=== PATIENT | male | born 1960 | race Hispanic/Latino ===

== ENCOUNTER → 2017-09-20 | Day surgery (SDC) | payer OTHER ==
[~2017-09-20] MED LIST: FENTANYL CITRATE/PF 100MCG/2 ML INJ ONE; HYOSCYAMINE SULFATE 0.5 MG/ML AMP ONE; LIDOCAINE HCL 2% LOCAL INJ 5 ML SDV VIAL INJ ONE; MIDAZOLAM HCL 2 MG/2 ML VIAL ONE; PROPOFOL IV EMULSION 10 MG/ML 50 ML VIAL ONE; SIMETHICONE 40 MG/0.6 ML BTL ONE
--- NOTE | 2017-09-20 09:32 | Operative Report ---
DATE OF PROCEDURE: September 20, 2017 REFERRING PHYSICIAN: Dr. Hue Klein. PROCEDURES PERFORMED: Colonoscopy and polypectomy. INDICATION FOR COLONOSCOPY: Colorectal cancer screening. MEDICATION: Patient was done under MAC. Please see anesthesiologist's note. PROCEDURE: With the patient in left lateral decubitus position, flexible fiberoptic Olympus colonoscope was inserted into the rectum with ease and advanced all the way to the cecum. It was then withdrawn slowly. Mucosa overlying the cecum and the ascending colon appeared to be within normal limits. One polyp was snared, 1 polyp was hot biopsied from the proximal transverse colon. The descending colon appeared to be within normal limits. Some diverticular disease was noted in the sigmoid colon. One polyp was hot biopsied from the sigmoid colon. The rectum appeared to be within normal limits. The scope was then retroflexed into the distal rectum and small internal hemorrhoids were noted, none of which was actively bleeding. The scope was then straightened out. It was subsequently withdrawn. Patient tolerated the procedure well. IMPRESSIONS 1. Transverse colon polyps times 2, one snared and one hot biopsied. 2. Diverticulosis. 3. Sigmoid colon polyp, hot biopsied. 4. Internal hemorrhoids, none actively bleeding. PLAN 1. Follow up histology. 2. Initiate high-fiber, low-fat diet. 3. Initiate high-fiber supplement. 4. Patient will need a followup colonoscopy in 3 years. Job#: [id number] CF cc:HUE KLEIN MD
== END | disposition home or self-care (01) ==
LOC: OR 06:07 → EDSEX 06:07
PROVIDERS: ATTEND Internal Medicine Gastroenterology
DX: Z12.11 Encounter for screening for malignant neoplasm of colon (principal); D12.3 Benign neoplasm of transverse colon; K57.30 Diverticulosis of large intestine without perforation or abscess without bleeding; K64.8 Other hemorrhoids; E78.00 Pure hypercholesterolemia, unspecified; E11.9 Type 2 diabetes mellitus without complications; N20.0 Calculus of kidney; F41.9 Anxiety disorder, unspecified; Z01.810 Encounter for preprocedural cardiovascular examination; Z80.0 Family history of malignant neoplasm of digestive organs
CPT/HCPCS: 36415; 45384; 45385; 82948; 93005; J1980; J2001; J2250; 45378